=== PATIENT | female | born 1950 | race Caucasian/White ===

== ENCOUNTER 2019-12-19 08:03 | Day surgery (SDC) | payer OTHER ==
[~2019-12-19] VITALS: Ht 157.5 cm; Wt 66.6 kg
[~2019-12-19 08:03] MED LIST: CETI5 PO; MELA3 PO; MIRALAX119 GM PO; OMEP20ER PO; TRIHYD253A PO
--- NOTE | 2019-12-19 08:43 | NUR ---
PT ADMITTED TO LOCATED WITHIN [facility]. AGREES WITH PLANNED SURGERY. LUNG SOUNDS CLEAR.
[2019-12-19] MEDS ORDERED: ACET325 PO (17:32)
[2019-12-19] MEDS ORDERED: DOCU100 PO (17:33)
[2019-12-19] MEDS ORDERED: HYDR1TAB94 PO (17:34)
[2019-12-19] MEDS ORDERED: IBUP800 PO (17:34)
--- NOTE | 2019-12-19 18:45 | NUR ---
DISCHARGE SUMMARY PT A&OX4, VSS, VOIDING WELL, AMBULATED INDEPENDENTLY TO BRP AND UP IN ROOM, DENIES PAIN, SCANT BLEEDING GLORIA PAD, ZEINA PO INTAKE, DENIES N&V. LEFT FLOOR VIA WC TO GO HOME WITH ; HAS SCRIPTS FILLED AT HOME; DC INSTRUCTIONS PROVIDED, PT & STATED UNDERSTOOD INSTRUCTIONS. IV DC'D.
--- NOTE | 2019-12-20 08:38 | NUR ---
12/20/19 0838 Jeanette Link VERIFICATIONS: EDIT CHART.
== END 2019-12-19 18:30 | disposition home or self-care (01) ==
LOC: ORSCMMR 08:03 → ORD 10:00 → ORSCMMR 10:00 → SURS 13:36 → ORSCMMR 18:30
DX: N81.6 Rectocele (principal); N81.10 Cystocele, unspecified; R39.81 Functional urinary incontinence; N81.5 Vaginal enterocele; D25.9 Leiomyoma of uterus, unspecified; I10 Essential (primary) hypertension; Z79.899 Other long term (current) drug therapy
CPT/HCPCS: 88307; C1771; J0171; J0690; J1100; J1885; J2250; J2370; J2405; J2704; J3010; J7120; Q9968

== ENCOUNTER → 2020-09-19 | Outpatient (CLI) | payer OTHER ==
[~2020-09-19] MED LIST changes: +ACET325 PO; +DOCU100 PO; +HYDR1TAB94 PO; +IBUP800 PO
[2020-09-19 11:35] LABS: Source, Urine Clean Catch
[2020-09-19 13:04] LABS: Appearance, Urine Clear (Clear); Bilirubin, Urine Neg (Neg); Blood, Urine Neg (Neg); Color, Urine Yellow (P-Yellow); Glucose Qualitative, Urine Neg (Neg); Ketones, Urine Neg (Neg); Leukocyte Esterase, Urine Neg (Neg); Nitrite, Urine Neg (Neg); Protein, Urine Neg (Neg); Urobilinogen, Urine NORM (Normal)
== END | disposition home or self-care (01) ==
LOC: LAB 11:33 → LAB SHORT 11:33
PROVIDERS: Obstetrics & Gynecology
DX: R35.0 Frequency of micturition (principal)
CPT/HCPCS: 81003